=== PATIENT | male | born 1975 | race Caucasian/White ===

== ENCOUNTER 2023-12-17 13:34 | Outpatient (AMB) | payer OTHER, SELFPAY ==
--- NOTE | 2023-12-17 13:39 | MHC.OFFWIV ---
Intake Vital Signs 12/17/23 13:41 Weight 210 lb BP 110/80 Blood Pressure Location Lt brachial Position Sitting Pulse 81 Pulse Source Pulse Oximeter Temp 98.0 F Temp Source Temporal Artery Scan Pulse Oximetry (%) 96 Oxygen Delivery Method Room Air Intake Visit Reasons: G[employer] ?Strep Intake Note: ptis here today for strep started 4 days ago Patient Tobacco Use Status: Never used Tobacco Allergies No Known Allergies Allergy (Verified 12/17/23 13:44) Do you need a note to return to daycare/school/sports/work: No HPI HPI Comments History of Present Illness Details This is a 48-year-old male with no stated past medical history presenting for evaluation of postnasal drip and a sore throat that he has had for the past two days. Patient comes today because his partner's daughter had her physical this morning and tested positive for strep throat. Patient denies having any fevers, chills, ear pain or cough. He does describe discomfort when swallowing. Patient has not taken any [id number] medication for treatment of his symptoms. [facility] Social History Patient Tobacco Use Status: Never used Tobacco Review of Systems Const All systems reviewed & are unremarkable except as noted in HPI and below Denies chills, Denies fatigue and Denies fever(s) Eyes Reports no additional complaints ENT Reports no additional complaints, Reports post nasal drip and Reports sore throat Card Reports no additional complaints Resp Reports no additional complaints Skin/Breast Reports system reviewed and no additional complaints, except as documented Endo Denies fatigue Physical Exam Vital Signs: Patient is afebrile. Const General: cooperative, healthy appearing, comfortable, no acute distress, well developed, alert and awake Nutritional Appearance: average body habitus and well nourished Orientation/consciousness: patient oriented x3 Limitations: no limitations HEENT Head: Yes normal to inspection and Yes normocephalic Ears: hearing grossly normal bilaterally, external ears normal, EAC's normal and TM abnormal (TMs bulging bilaterally without erythema) General nose exam: Normal external nose present Face and sinus: Yes normal facial exam and Yes sinuses nontender Mouth: Normal oral and palatal mucosa present and moist mucous membranes Teeth and gingiva: dentition normal Throat: Yes posterior oropharynx abnormal (there is erythema and edema throughout the posterior oropharynx; no exudate) Neck Lymphatic: lymphadenopathy (anterior cervical) Resp Effort & Inspection: normal respiratory effort, able to speak in complete sentences, no audible wheezes, no cough and no respiratory distress Auscultation: clear to auscultation bilaterally Skin General skin exam: no rashes or lesions noted Neuro General: patient oriented x3 Psych Appearance: grossly normal Mental Status: mental status grossly normal Insight: Good insight present (Psych) Judgement: Good judgement present (Psych) Results Reviewed Results Reviewed: Rapid strep is negative. Assessment & Plan Assessment & Plan (1) Acute pharyngitis: Comment: Given this patient's history coupled with his examination he will be treated with antibiotic therapy. Code(s): J02.9 - Acute pharyngitis, unspecified Qualifiers: Pharyngitis/tonsillitis etiology: unspecified etiology Qualified Code(s): J02.9 - Acute pharyngitis, unspecified Plan: Penicillin t.i.d. times 10 days; ibuprofen or Tylenol as needed for discomfort. Medications: New penicillin V potassium 500 mg PO TID 30 tabs 0RF Coding Level of Care Code New Pt Level 3 (83159) Diagnoses Acute pharyngitis, unspecified etiology J02.9 Pharyngitis/tonsillitis etiology: unspecified etiology Time Spent (min) 20
[2023-12-17 13:41] VITALS: BP 110/80; PULSE 81; TEMP 36.7; O2SAT 96
== END 2023-12-17 13:59 | disposition home or self-care (01) ==
PROVIDERS: Visit Provider Physician Assistant
DX: J02.9 Acute pharyngitis, unspecified (principal)
CPT/HCPCS: 87880; 99203